=== PATIENT | female | born 1975 | race Two or more races ===

== ENCOUNTER 2017-09-17 19:20 | Emergency (ER) | payer OTHER ==
[~2017-09-17] VITALS: Ht 152.4 cm; Wt 81.6 kg
[2017-09-17] MEDS ORDERED: SIMVASTATIN20 MG (19:33)
[2017-09-17] MEDS ORDERED: AMOX1TAB5 PO (23:04)
== END 2017-09-17 23:48 | disposition home or self-care (01) ==
LOC: ER 19:20
DX: R50.9 Fever, unspecified (principal)

== ENCOUNTER 2018-06-01 14:21 | Emergency (ER) | payer OTHER ==
[~2018-06-01] VITALS: Ht 152.4 cm; Wt 136.1 kg
[~2018-06-01 14:21] MED LIST: AMOX1TAB5 PO; SIMVASTATIN20 MG
== END 2018-06-02 00:51 | disposition home or self-care (01) ==
LOC: ER 14:21
DX: K52.9 Noninfective gastroenteritis and colitis, unspecified (principal)

== ENCOUNTER 2018-07-07 06:03 | Emergency (ER) | payer OTHER ==
[~2018-07-07] VITALS: Ht 152.4 cm; Wt 89.8 kg
== END 2018-07-07 11:44 | disposition home or self-care (01) ==
LOC: ER 06:03
DX: N39.0 Urinary tract infection, site not specified (principal)

== ENCOUNTER 2019-02-18 13:20 | Emergency (ER) | payer OTHER ==
[~2019-02-18] VITALS: Ht 152.4 cm; Wt 90.7 kg
== END 2019-02-18 15:46 | disposition home or self-care (01) ==
LOC: ER 13:20
DX: K52.9 Noninfective gastroenteritis and colitis, unspecified (principal)

== ENCOUNTER 2019-06-21 12:11 | Emergency (ER) | payer OTHER ==
[~2019-06-21] VITALS: Ht 152.4 cm; Wt 88.9 kg
== END 2019-06-21 15:17 | disposition home or self-care (01) ==
LOC: ER 12:11
DX: R51 Headache (principal)

== ENCOUNTER 2019-08-14 11:50 | Emergency (ER) | payer OTHER ==
[~2019-08-14] VITALS: Ht 152.4 cm; Wt 88.5 kg
[2019-08-14] MEDS ORDERED: TUSNEL LIQUID178 ML PO (16:28)
[2019-08-14] MEDS ORDERED: AMOX-CLAV 875-1 EACH PO (16:28)
[2019-08-14] MEDS ORDERED: DOLOGEN CAPLET1 EACH PO (16:28)
== END 2019-08-14 16:35 | disposition home or self-care (01) ==
LOC: ER 11:50
DX: J03.80 Acute tonsillitis due to other specified organisms (principal)

== ENCOUNTER 2023-07-10 22:30 | Emergency (ER) | payer OTHER ==
[~2023-07-10] VITALS: Ht 162.6 cm; Wt 86.2 kg
[~2023-07-10 22:30] MED LIST changes: +AMOX-CLAV 875-1 EACH PO; +DOLOGEN CAPLET1 EACH PO; +TUSNEL LIQUID178 ML PO
[2023-07-11 00:14] LABS: HEMATOCRIT 40.5 % (36.0-45.00); HEMOGLOBIN 13.4 g/dL (12.0-15.00); MEAN CORPUSCULAR HEMOGLOBIN 29.7 pg (27.00-32.0); PLATELET COUNT 306 K/uL (150-450); RED BLOOD COUNT 4.51 M/uL (4.00-6.00); RED CELL DISTRIBUTION WIDTH 13.9 % (11.5-14.5)
[2023-07-11 00:25] LABS: CALCIUM 9.7 mg/dL (8.5-10.1); CREATININE SERUM 0.84 mg/dL (0.55-1.02); GFR 72.67; POTASSIUM 3.94 mEq/L (3.5-5.1)
[2023-07-11 02:39] LABS: URINE APPEARANCE Clear; URINE BILIRRUBIN Negative (NEGATIVE); URINE BLOOD NHT; URINE COLOR Yellow; URINE GLUCOSE Negative (NEGATIVE); URINE LEUKOCYTE Negative; URINE NITRATE Negative; URINE PROTEIN Negative (NEGATIVE); URINE UROBILINOGEN 0.2 E.U./dl
[2023-07-11 02:46] LABS: URINE BACTERIA 71.7 uL (0.0-1933); URINE EPITHELIAL CELLS 1.5 uL (0.0-38.8); URINE RBC 44.1 uL (0.0-20.8)
[2023-07-11 04:14] LABS: HEMATOCRIT 39.1 % (36.0-45.00); HEMOGLOBIN 13.4 g/dL (12.0-15.00); MEAN CELL VOLUME 89.4 fL (80.00-100.00); MEAN CORPUSCULAR HEMOGLOBIN 30.6 pg (27.00-32.0); MEAN CORPUSCULAR HGB CONC 34.2 g/dl (32.0-36.0); PLATELET COUNT 299 K/uL (150-450); RED BLOOD COUNT 4.38 M/uL (4.00-6.00)
[2023-07-11] MEDS ORDERED: ONDANSETRON ODT4 MG PO (04:53)
[2023-07-11] MEDS ORDERED: INTESTINEX680 M2 PO (04:53)
[2023-07-11] MEDS ORDERED: PEPCID40 MG PO (04:53)
== END 2023-07-11 05:01 ==
LOC: ER 22:30
PROVIDERS: Emergency Medicine; General Practice
DX: K52.89 Other specified noninfective gastroenteritis and colitis (principal); Z20.822 Contact with and (suspected) exposure to COVID-19

== ENCOUNTER 2025-06-29 01:45 | Emergency (ER) | payer OTHER ==
[~2025-06-29] VITALS: Ht 152.4 cm; Wt 88.5 kg
[~2025-06-29 01:45] MED LIST changes: +INTESTINEX680 M2 PO; +ONDANSETRON ODT4 MG PO; +PEPCID40 MG PO
[2025-06-29] MEDS ORDERED: LOPID PO (02:10)
[2025-06-29] MEDS ORDERED: ZOCOR40 MG PO (02:11)
[2025-06-29] MEDS ORDERED: NORVASC5 MG PO (02:11)
[2025-06-29] MEDS ORDERED: SODIUM CL 0.9% 25 ML IV.SOLN. IV PUSH STA (02:38)
[2025-06-29] MEDS ORDERED: FAMOtidine 10 MG/ML (4ML VIAL) IV STA (02:39)
[2025-06-29] MEDS ORDERED: PROMETHAZINE HCL 50 MG/ML AMPUL IM STA (02:39)
[2025-06-29] MEDS ORDERED: DEXAMETHASONE SODIUM PHOSPHATE 4 MG/ML VIAL IV STA (02:40)
[2025-06-29] MEDS ORDERED: DEXAMETHASONE SODIUM PHOSPHATE 4 MG/ML VIAL ONE (02:58)
[2025-06-29] MEDS ORDERED: PROMETHAZINE HCL 50 MG/ML AMPUL IM ONE (02:58)
[2025-06-29] MEDS ORDERED: FAMOTIDINE/PF 20 MG/2 ML VIAL ONE (02:59)
[2025-06-29 04:00] LABS: BASO % 0.3 % (0.1-1.2); EOS # 0.01 (0.04-0.54); EOS % 0.1 % (0.7-7.0); LYMPH # 1.80 (1.18-3.74); LYMPH % 15.4 % (19.3-53.1); MEAN PLATELET VOLUME 9.40 fl (9.4-12.4); MONO # 0.35 (0.24-0.82); MONO % 3.0 % (4.7-12.5); NEUT # 9.49 (1.56-6.13); NEUT % 81.0 % (34.0-71.1); RED CELL DISTRIBUTION WIDTH 12.8 % (11.6-14.4)
[2025-06-29 04:09] LABS: BUN CREA RATIO 16.0 (7.0-25.0); CREATININE SERUM 0.58 mg/dL (0.55-1.02); GFR 110.49; GLUCOSE FASTING 118.0 mg/dL (65-100); OSMOLALITY SERUM 283.0 MOSM/KG (275-295)
[2025-06-29 04:27] LABS: URINE APPEARANCE Clear; URINE BILIRRUBIN Negative (NEGATIVE); URINE BLOOD Small; URINE COLOR Yellow; URINE GLUCOSE Negative (NEGATIVE); URINE KETONE Negative (NEGATIVE); URINE LEUKOCYTE Negative; URINE NITRATE Negative; URINE PROTEIN Trace (NEGATIVE); URINE UROBILINOGEN 0.2 E.U./dl
[2025-06-29 04:30] LABS: URINE BACTERIA 93.5 uL (0.0-1933); URINE EPITHELIAL CELLS 9.9 uL (0.0-38.8); URINE RBC 55.5 uL (0.0-20.8); URINE WBC 8.3 uL (0.0-23.2)
[2025-06-29 04:32] LABS: URINE CAST 0.00 uL (0.0-1.40)
== END 2025-06-29 05:01 | disposition home or self-care (01) ==
LOC: ER 01:46
PROVIDERS: General Practice
DX: R10.13 Epigastric pain (principal); K52.89 Other specified noninfective gastroenteritis and colitis